=== PATIENT | female | born 1990 | race Caucasian/White ===

== ENCOUNTER 2017-10-28 20:13 | Emergency (ER) | END 2017-10-28 22:31 | disposition home or self-care (01) ==

== ENCOUNTER 2018-04-19 03:27 | Emergency (ER) | END 2018-04-19 05:20 | disposition home or self-care (01) ==

== ENCOUNTER 2018-07-21 00:05 | Inpatient (IN) | payer OTHER ==
[~2018-07-21] VITALS: Ht 160 cm; Wt 57.0 kg
[~2018-07-21 00:05] MED LIST: CIPR500T4 PO; IBUP-1561 PO; IBUP800T48 PO; ONDA4TAB14 PO
[2018-07-21] MEDS ORDERED: ACETAMINOPHEN 325 MG TAB PO STA (00:21)
[2018-07-21] MEDS ORDERED: CEFEPIME 2GM/50 ML (PMX) 50 ML IVPB STA (00:21)
[2018-07-21] MEDS ORDERED: SODIUM CHLORIDE 0.9% 1L BAG IV* STA (00:21)
[2018-07-21] MEDS ORDERED: VANCOMYCIN 1 GM (PMX) 250 ML IVPB ONE (00:30)
[2018-07-21] MEDS ORDERED: KETOROLAC 30 MG INJ IV STA (03:54)
--- NOTE | 2018-07-21 05:58 | ERD ---
ER Documentation Chief Complaint Chief Complaint fever/headache x 1 day, c/o low back pain, denies dysuria HPI Is a 19-year-old female, with a fever body aches and low back pain for the past day. She has had flank pain and urgency and frequency of urination but no dysuria. Denies any vomiting but has mild nausea. Has history of pyelonephritis in the past. ROS All systems reviewed and are negative except as per history of present illness. Medications Home Meds Discontinued Scripts Ibuprofen* (Motrin*) 800 Mg Tab, 800 MG PO Q6H PRN for PAIN AND OR ELEVATED TEMP, #30 TAB Prov:JEWELL TYLER MD 04/19/18 Ondansetron (Ondansetron Odt) 4 Mg Tab.rapdis, 4 MG PO Q6H PRN for NAUSEA AND/OR VOMITING, #10 TAB Prov:HANNAH PATTERSON PA-C 10/28/17 Ibuprofen* (Motrin*) 400 Mg Tab, 400 MG PO Q6, #30 TAB Prov:HANNAH PATTERSON PA-C 10/28/17 Ciprofloxacin Hcl* (Ciprofloxacin Hcl*) 500 Mg Tablet, 500 MG PO BID for 7 Days, TAB Prov:HANNAH PATTERSON PA-C 10/28/17 Allergies Allergies: Coded Allergies: No Known Allergy (Unverified , 07/21/18) PMhx/Soc History of Surgery: Yes (CSECTION X 3) Anesthesia Reaction: No Hx Neurological Disorder: No Hx Respiratory Disorders: No Hx Cardiac Disorders: No Hx Psychiatric Problems: No Hx Miscellaneous Medical Probl: Yes (Kidney infection) Hx Alcohol Use: No Hx Substance Use: No Hx Tobacco Use: No Smoking Status: Never smoker Physical Exam Vitals Vital Signs Date Temp Pulse Resp B/P (MAP) Pulse Ox O2 O2 Flow FiO2 Time Delivery Rate 07/21/18 100.5 04:05 07/21/18 101.5 127 21 100/59 99 Room Air 02:41 (73) 07/21/18 102.9 138 18 110/55 100 00:10 (73) Physical Exam Const: No acute distress Head: Atraumatic Eyes: Normal Conjunctiva ENT: Normal External Ears, Nose and Mouth. Neck: Full range of motion. No meningismus. Resp: Clear to auscultation bilaterally Cardio: Regular rate and rhythm, no murmurs Abd: Soft, non tender, non distended. Normal bowel sounds Skin: No petechiae or rashes Back: No midline or flank tenderness Ext: No cyanosis, or edema Neur: Awake and alert Psych: Normal Mood and Affect Result Diagram: 07/21/183207/21/1832 Results 24 hrs Laboratory Tests Test 07/21/18 00:33 07/21/18 00:36 07/21/18 00:38 07/21/18 00:45 White Blood Count 9.8 10^3/ul Red Blood Count 4.28 10^6/ul Hemoglobin 12.4 g/dl Hematocrit 37.6 % Mean Corpuscular 87.9 fl Volume Mean Corpuscular 29.0 pg Hemoglobin Mean Corpuscular 33.0 g/dl Hemoglobin Concen t Red Cell 13.2 % Distribution Width Platelet Count 170 10^3/UL Mean Platelet 11.4 fl Volume Immature 0.500 % Granulocytes % Neutrophils % 86.8 % Lymphocytes % 6.4 % Monocytes % 6.2 % Eosinophils % 0.0 % Basophils % 0.1 % Nucleated Red 0.0 /100WBC Blood Cells % Immature 0.050 10^3/ul Granulocytes # Neutrophils # 8.5 10^3/ul Lymphocytes # 0.6 10^3/ul Monocytes # 0.6 10^3/ul Eosinophils # 0.0 10^3/ul Basophils # 0.0 10^3/ul Nucleated Red 0.0 10^3/ul Blood Cells # Prothrombin Time 14.7 Sec Prothrombin Time 1.1 Ratio INR International 1.14 Normalized Ratio Activated 27.4 Sec Partial Thrombopl ast Time Sodium Level 139 mmol/L Potassium Level 3.6 mmol/L Chloride Level 104 mmol/L Carbon Dioxide 22 mmol/L Level Anion Gap 13 Blood Urea 11 mg/dl Nitrogen Creatinine 0.71 mg/dl Est Glomerular > 60 mL/min Filtrat Rate mL/min Glucose Level 120 mg/dl Calcium Level 9.1 mg/dl Total Bilirubin 2.0 mg/dl Direct Bilirubin 0.00 mg/dl Indirect 2.0 mg/dl Bilirubin Aspartate Amino 20 IU/L Transf (AST/SGOT) Alanine 10 IU/L Aminotransferase (ALT/SGPT) Alkaline 84 IU/L Phosphatase Troponin I < 0.012 ng/ml Total Protein 8.3 g/dl Albumin 4.5 g/dl Globulin 3.80 g/dl Albumin/Globulin 1.18 Ratio POC Venous 1.4 mmol/L Lactate Urine Color YELLOW Urine Clarity SLIGHTLY CLOUDY Urine pH 7.0 Urine Specific 1.025 [place] Urine Ketones 2+ mg/dL Urine Nitrite NEGATIVE mg/dL Urine Bilirubin NEGATIVE mg/dL Urine NEGATIVE mg/dL Urobilinogen Urine Leukocyte 2+ Sariah/ul Esterase Urine Microscopic 8 /HPF RBC Urine Microscopic 101 /HPF WBC Urine Squamous MODERATE /HPF Epithelial Cells Urine Bacteria FEW /HPF Urine Mucus MANY /HPF Urine Hemoglobin NEGATIVE mg/dL Urine Glucose NEGATIVE mg/dL Urine Total 2+ mg/dl Protein POC Beta HCG, NEGATIVE Qualitative Test 07/21/18 02:35 07/21/18 04:33 POC Venous 1.0 mmol/L Lactate Lactic Acid Level 0.7 mmol/L Current Medications Medications Dose Sig/Willow Start Time Status Last (Trade) Ordered Route PRN Stop Time Admin Dose Reason Admin Sodium 1,710 ml BOLUS OVER 2 07/21/18 DC 07/21/18 Chloride HOURS STAT 00:21 00:54 (NS) IV* 07/21/18 00:22 650 mg ONCE STAT 07/21/18 DC 07/21/18 Acetaminophen PO 00:21 00:53 (Tylenol 07/21/18 00:22 Tab) Cefepime HCl 50 ml @ ONCE STAT 07/21/18 DC 07/21/18 100 mls/hr IVPB 00:21 00:54 07/21/18 00:50 Vancomycin 250 ml @ ONCE ONCE 07/21/18 DC 07/21/18 HCl 125 mls/hr IVPB 00:30 01:07 07/21/18 02:29 Ketorolac 30 mg ONCE STAT 07/21/18 DC 07/21/18 Tromethamine IV 03:54 03:58 (Toradol) 07/21/18 03:55 Procedures/MDM Emergency room course: Patient seen and brought by triage nurse. Code sepsis called. Septic protocol started. EKG: Rate/Rhythm: Sinus tachycardia QRS, ST, T-waves: [No changes consistent w/ acute ischemia] Impression: Sinus tachycardia Chest X-ray 1V Interpreted by me: Soft Tissue: No acute abnormalities Bones: No acute abnormalities Mediastinum/Cardiac Silhouette/Lungs: [No acute abnormalities] Patient's infectious symptoms have not stabilized and the patient is at risk of rapid decompensation. The patient will be admitted for careful hydration, antibiotic therapy, and infectious source control. Severe Sepsis Assessment: Infectious Source: [pyleonephritis] Hypotension( SBP < 90 or >40 mmHG drop or MAP < 65) Bili > 2] Severe Sepsis Managment: Blood Cultures X 2 before broad spectrum antibiotics initiated within 3 hours of recognition. 30 ml/kg NS bolus Completed Initial Lactate: [normal] Repeat Lactate [not indicated as initial < 2.0] Critical Care: Time: 45 minutes, independent of any separately billable procedural time Treatments/Evaluations: Emergent fluid management, while maintaining close respiratory support. Immediate broad spectrum antibiotic therapy. Simultaneous assessment for possible sources in order to direct therapy. Consideration for invasive and chemical support to prevent respiratory or cardiac collapse. Septic Shock Assessment (1 hour post 30 ml/kg fluid bolus): Hypotension (SBP < 90 or 40 mmHg drop, MAP < 65): [No] Lactic acid > 4.0 [No] Perfusion Reassessment for Septic Shock: 98.6, pulse of 106, respiratory rate 16, blood pressure 104/77 Heart Exam: [Tachycardic] Lung Exam: [No Crackles] Capillary Refill: [Delayed] Peripheral Pulses: [Radially present] Skin: [Mottled, pale] Accepting Care Team: Current data and ongoing care discussed. Time: 6 AM Primary Provider: To be admitted to [facility]. Awaiting callback from case management. Endorsed to 6 AM physician. Consulting: [XOXOXO] Outstanding Data: none Departure Diagnosis: Primary Impression: Sepsis Sepsis type: sepsis due to unspecified organism Qualified Codes: A41.9 - Sepsis, unspecified organism Additional Impression: Pyelonephritis Condition: Serious HANNAH WALDRON Jul 21, 2018 05:58
[2018-07-21] MEDS ORDERED: OXYCODONE/ACETAMINOPHEN (5/325) TAB PO ONE (08:00)
[2018-07-21] MEDS ORDERED: NACL 0.9% 3 ML SYG IV SCH (09:30)
[2018-07-21] MEDS ORDERED: morphine 2 MG INJ IV PRN (09:30)
[2018-07-21] MEDS ORDERED: DOCUSATE SODIUM 100 MG CAP PO PRN (09:30)
[2018-07-21] MEDS: ACETAMINOPHEN 325 MG TAB PO PRN ×2 (09:34→20:42)
[2018-07-21] MEDS: SOD CHLORIDE 0.9% 1,000 ML IV SCH ×2 (09:35→17:18)
[2018-07-21] MEDS: PIPER-TAZO 3.375 GM IV (PMX) 100 ML IVPB SCH ×3 (09:36→21:50)
--- NOTE | 2018-07-21 09:42 | HP ---
DATE OF ADMISSION: 07/21/2018 CHIEF COMPLAINT: Back pain and fever. HISTORY OF PRESENT ILLNESS: A 27-year-old female who presents to emergency room with compla int of left-sided low back pain associated with fever and headache x1 day. The patient denies any ab dominal pain. She denies any dysuria, but has noted urgency. She has previous history of pyelonephr itis. Initial evaluation revealed a contaminated urine. The patient had a temperature of 101.5 degr ees Fahrenheit. CAT scan of the abdomen and pelvis was unremarkable. There was no evidence of urina ry calculi. PAST MEDICAL HISTORY: History of pyelonephritis in the past. SOCIAL HISTORY: The patient lives at home. She denies tobacco or alcohol use. She has four childre n. PHYSICAL EXAMINATION: GENERAL: Well-developed, well-nourished female who is in mild distress. VITAL SIGNS: Blood pressure is 100/65, pulse 116, temperature 101.5, respirations 20. HEENT: Extraocular muscles intact. Pupils are equal, round and reactive to light bilaterally. Scle cesia are anicteric. Oropharynx is clear and moist. NECK: Supple, no JVD, no carotid bruits. LUNGS: Clear to auscultation bilaterally. CARDIAC: Tachycardia. No murmurs, rubs or gallops. ABDOMEN: Soft, nontender, nondistended, normoactive bowel sounds. BACK: Left CVA tenderness. EXTREMITIES: No clubbing, cyanosis, or edema. NEUROLOGICAL: Nonfocal. LABORATORY DATA: Urinalysis shows 101 WBCs, with few bacteria and 2+ leukocyte esterase. WBC is 9.8 , hemoglobin is 12.4. Basic metabolic panel is within normal limits. Lactic acid is 0.7. His beta hCG is negative. ASSESSMENT: A 27-year-old female with pyelonephritis, rule out urosepsis with a previous history of pyelonephritis. PLAN: Admit to telemetry, IV Zosyn, IV fluids, blood and urine cultures. Dictated By: SONG WALTON MD SK/NTS Conf#: [id number] DID#: [id number] CC: HANNAH WALDRON MD;*EndCC*
[2018-07-21] MEDS: FAMOTIDINE 20 MG TAB PO SCH ×2 (09:50→21:50)
[2018-07-21] MEDS: ENOXAPARIN 40 MG/0.4 ML SYG SC SCH (09:50)
[2018-07-21 13:45] VITALS: BP 95/50; PULSE 86; RESP 18
[2018-07-21 15:16] VITALS: BP 97/59; PULSE 95; RESP 18
[2018-07-21 20:15] VITALS: BP 97/54; PULSE 119; RESP 19
[2018-07-21] MEDS: ONDANSETRON 4 MG INJ IV PRN (20:44)
[2018-07-21 21:23] VITALS: Ht 160 cm; Wt 57.0 kg
[2018-07-21 22:12] VITALS: PULSE 108
[2018-07-22] MEDS: SOD CHLORIDE 0.9% 1,000 ML IV SCH ×3 (01:14→14:18)
[2018-07-22 02:51] VITALS: BP 99/58; PULSE 87; RESP 18
[2018-07-22] MEDS: PIPER-TAZO 3.375 GM IV (PMX) 100 ML IVPB SCH ×3 (06:09→21:10)
[2018-07-22] MEDS: ACETAMINOPHEN 325 MG TAB PO PRN ×2 (06:12→17:00)
[2018-07-22 07:50] VITALS: BP 97/58; PULSE 90; RESP 17
[2018-07-22] MEDS: FAMOTIDINE 20 MG TAB PO SCH ×2 (08:55→21:10)
[2018-07-22] MEDS: ENOXAPARIN 40 MG/0.4 ML SYG SC SCH (09:00)
--- NOTE | 2018-07-22 09:50 | PN ---
Date/Time of Note Date/Time of Note DATE: 07/22/18 TIME: 09:49 Subjective Feels better. No abdominal pain, nausea, or vomiting. Objective Vitals Vital Signs Date Temp Pulse Resp B/P (MAP) Pulse Ox O2 O2 Flow FiO2 Time Delivery Rate 07/22/18 98.5 87 18 99/58 (72) 99 Room Air 02:51 Intake and Output 07/21/18 07/21/18 07/22/18 1515:00 23:00 07:00 IntakeIntake Total 1000 ml 1350 ml BalanceBalance 1000 ml 1350 ml Lungs clear to auscultation bilaterally Cardiac regular rate and rhythm Abdomen soft nontender nondistended normoactive bowel sounds Left CVA tenderness Extremities no edema Neurological nonfocal Results Result Diagram: 07/22/1853007/22/18530 Medications Medications Current Medications Sodium Chloride 1,000 ml @ 125 mls/hr Q8H IV Last administered on 07/22/18at 02:50; Admin Dose 125 MLS/HR; Start 07/21/18 at 09:14 IV Flush (NS 3 ml) 3 ml PER PROTOCOL IV ; Start 07/21/18 at 09:30 Ondansetron HCl (Zofran Inj) 4 mg Q6H PRN IV NAUSEA/VOMITING Last administered on 07/21/18at 20:44; Admin Dose 4 MG; Start 07/21/18 at 09:30 Acetaminophen (Tylenol Tab) 650 mg Q6H PRN PO .PAIN 1-3 OR TEMP Last administered on 07/22/18at 06:12; Admin Dose 650 MG; Start 07/21/18 at 09:30 Morphine Sulfate (morphine) 2 mg Q4H PRN IV .SEVERE PAIN 7-10; Start 07/21/18 at 09:30 Docusate Sodium (Colace) 100 mg Q12H PRN PO .CONSTIPATION; Start 07/21/18 at 09:30 Famotidine (Pepcid) 20 mg Q12 PO Last administered on 07/22/18at 08:55; Admin Dose 20 MG; Start 07/21/18 at 09:30 Enoxaparin Sodium (Lovenox) 40 mg DAILY SC Last administered on 07/22/18at 09:00; Admin Dose 40 MG; Start 07/21/18 at 09:30 Piperacillin Sod/ Tazobactam Sod 100 ml @ 200 mls/hr Q8 IVPB Last administered on 07/22/18at 06:09; Admin Dose 200 MLS/HR; Start 07/21/18 at 09:30 VTE Prophylaxis Risk score (from Ns)>0 risk: 0 SCD applied (from [facility]): Yes Lines/Catheters IV Catheter Type: Saline Lock Sandoval in Place: No Assessment/Plan Assessment/Plan 27-year-old female with pyelonephritis Rule out urosepsis Continue Zosyn Continue IV fluid Educated patient regarding precautions to avoid future UTI Check blood and urine culture results SONG WALTON MD Jul 22, 2018 09:50
[2018-07-22 14:48] VITALS: BP 90/53; PULSE 92; RESP 16
[2018-07-22] MEDS ORDERED: CALCIUM CARBONATE 1.25 GM TAB PO ONE (15:30)
[2018-07-22 16:57] VITALS: BP 91/67; PULSE 73; RESP 18
[2018-07-22 20:00] VITALS: BP 92/55; PULSE 86; RESP 19
[2018-07-22] MEDS: ONDANSETRON 4 MG INJ IV PRN (23:50)
[2018-07-23] MEDS: SOD CHLORIDE 0.9% 1,000 ML IV SCH ×2 (00:51→09:14)
[2018-07-23 01:53] VITALS: BP 96/57; PULSE 87; RESP 18
[2018-07-23] MEDS: PIPER-TAZO 3.375 GM IV (PMX) 100 ML IVPB SCH (05:35)
[2018-07-23 08:04] VITALS: BP 104/56; PULSE 75; RESP 16
[2018-07-23] MEDS ORDERED: LEVO500T48 PO (08:04)
--- NOTE | 2018-07-23 08:05 | PDOCDIS ---
Discharge Instructions CONDITION [id number] Patient Condition: [id number] Good HOME CARE INSTRUCTIONS: [id number] Diet Instructions: [id number] Regular ACTIVITY: [id number] Activity Restrictions: [id number] No Restrictions FOLLOW UP/APPOINTMENTS Follow-up Plan pcp 1 week SONG WALTON MD Jul 23, 2018 08:05
[2018-07-23] MEDS: FAMOTIDINE 20 MG TAB PO SCH (08:45)
[2018-07-23] MEDS: ENOXAPARIN 40 MG/0.4 ML SYG SC SCH (08:49)
--- NOTE | 2018-07-23 09:45 | DS ---
DATE OF ADMISSION: 07/21/2018 DATE OF DISCHARGE: 07/23/2018 DISCHARGE DIAGNOSES: 1. Multidrug resistant E. coli. 2. UTI. HOSPITAL COURSE: A 27-year-old female who presented to the emergency room with complaint of urinary urgency associated with high fevers and left flank pain. The patient was diagnosed with pyelonephrit is. She received IV Zosyn for 3 days. High urine cultures grew multidrug resistant E. coli. Howeve r, the organism was sensitive to quinolones. The patient is in stable condition for discharge. I pr escribed 7 days of Levaquin. I had a long conversation with the patient regarding the prevention of recurrent UTIs. She was encouraged to increase her fluid intake. The patient is in stable condition for discharge. Dictated By: SONG WALTON MD SK/NTS Conf#: [id number] DID#: [id number] CC: SONG WALTON MD;*EndCC*
== END 2018-07-23 10:44 | disposition home or self-care (01) | DRG 872 ==
LOC: E/R 00:05 → MS3 07:49 → 5EC 07-22 16:00
PROVIDERS: ADMIT Internal Medicine; ATTEND Internal Medicine
DX: A41.9 Sepsis, unspecified organism (principal); N12 Tubulo-interstitial nephritis, not specified as acute or chronic
CPT/HCPCS: 36415; 71045; 74176; 80048; 80053; 81001; 81025; 83036; 83605; 84484; 85025; 85610; 85730; 87040; 87086; 87400; 93005; 96374; 96375; J0692; J1650; J1885; J2270; J2405; J2543; J3370; J7030